=== PATIENT | female | born 1995 | race African-American/Black ===

== ENCOUNTER 2023-10-04 09:15 | Emergency (ER) | payer BC, MEDICARE ==
[~2023-10-04] VITALS: Ht 175.3 cm; Wt 61.0 kg
[2023-10-04 09:28] VITALS: O2SAT 100
[2023-10-04] MEDS ORDERED: NAPR220C61 MT (11:11)
[2023-10-04] MEDS ORDERED: LIDO700A15 TP (11:11)
[2023-10-04] MEDS: LIDOCAINE 5% PATCH TOP SCH (11:24)
[2023-10-04] MEDS: IBUPROFEN 600MG TABLET PO ONE (11:24)
[2023-10-04 11:29] VITALS: BP 113/79; PULSE 71; RESP 20; TEMP 98
== END 2023-10-04 11:31 | disposition home or self-care (01) ==
LOC: ER 09:28
DX: S13.4XXA Sprain of ligaments of cervical spine, initial encounter (principal); Z98.890 Other specified postprocedural states; V49.9XXA Car occupant (driver) (passenger) injured in unspecified traffic accident, initial encounter; Y93.89 Activity, other specified; Y92.89 Other specified places as the place of occurrence of the external cause; Y99.8 Other external cause status
CPT/HCPCS: 99283